=== PATIENT | female | born 1980 | race Caucasian/White ===

== ENCOUNTER 2019-05-03 14:32 | Emergency (ER) | payer MEDICAID ==
[~2019-05-03] VITALS: Ht 142.2 cm; Wt 90.7 kg
[2019-05-03 14:40] VITALS: BP 152/111
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
--- NOTE | 2019-05-03 14:55 | NUR ---
[employer] OFFICERS AT BEDSIDE FOR INTERVIEW
--- NOTE | 2019-05-03 15:14 | NUR ---
PATIENT A/OX4, NO CHANGE IN LOC, NO NAUSEA OR VOMITING AT THIS TIME. DENIES PAIN AT THIS TIME. NEEDS ATTENDED. Patient discharged to home in stable condition. Written and verbal after care instructions given. Patient verbalizes understanding of instruction.
--- NOTE | 2019-05-03 15:16 | NUR ---
VITALS STABLE. BP126/82 HR 88 SPO2 100% R18 T98.1
== END 2019-05-03 15:16 | disposition home or self-care (01) ==
LOC: ER 14:34
DX: S00.03XA Contusion of scalp, initial encounter (principal); S09.8XXA Other specified injuries of head, initial encounter; R42 Dizziness and giddiness; I10 Essential (primary) hypertension; M54.30 Sciatica, unspecified side; F41.9 Anxiety disorder, unspecified; F32.9 Major depressive disorder, single episode, unspecified; Z98.51 Tubal ligation status; Z88.0 Allergy status to penicillin; Z60.2 Problems related to living alone; Y04.8XXA Assault by other bodily force, initial encounter; Y93.89 Activity, other specified; Y92.89 Other specified places as the place of occurrence of the external cause; Y99.8 Other external cause status

== ENCOUNTER 2019-12-14 19:23 | Emergency (ER) | payer MEDICAID ==
[~2019-12-14] VITALS: Ht 144.8 cm; Wt 68.0 kg
--- NOTE | 2019-12-14 19:45 | NUR ---
C/O MIDEPIGASTRIC PAIN S/P EATING SPICY FOOD
[2019-12-14 19:49] LABS: BASOPHILS # (AUTO) 0.1 /CMM (0.0-0.2); BASOPHILS % (AUTO) 0.8 % (0.0-2.0); EOSINOPHILS % (AUTO) 1.8 % (0.0-6.0); HEMATOCRIT 38 % (33-45); HEMOGLOBIN 12.4 g/dL (11.5-14.8); LYMPHOCYTES # (AUTO) 2.1 /CMM (0.8-4.8); LYMPHOCYTES % (AUTO) 33.9 % (20.0-44.0); MEAN CORPUSCULAR HGB CONC 33 g/dl (31.0-36.0); MEAN CORPUSCULAR VOLUME 91 fL (82-100); MONOCYTES # (AUTO) 0.6 /CMM (0.1-1.30); MONOCYTES % (AUTO) 9.5 % (2.0-12.0); NEUTROPHILS # (AUTO) 3.3 /CMM (1.8-8.9); PLATELET COUNT (AUTO) 328 /CMM (150-450); RED BLOOD CELL COUNT(AUTO) 4.18 MIL/uL (4.0-5.2); WHITE BLOOD COUNT (AUTO) 6.2 K/uL (4.3-11.0)
[2019-12-14 19:58] LABS: CALCIUM, SERUM 8.9 mg/dL (8.5-10.1); CARBON DIOXIDE 27 mmol/L (21-32); CHLORIDE 104 mmol/L (98-107); CREATININE 0.8 mg/dL (0.6-1.3); GLUCOSE 82 mg/dL (74-106); POTASSIUM 3.3 mmol/L (3.5-5.1); SODIUM SERUM 140 mmol/L (136-145); UREA NITROGEN, BLOOD 16 mg/dL (7-18)
--- NOTE | 2019-12-14 21:00 | NUR ---
PT MEDCIALLY STABLE FOR D/C. Patient discharged to home in stable condition. Written and verbal after care instructions given. Patient verbalizes understanding of instruction. family was called to sisal picker the pt.
[2019-12-14 21:01] VITALS: BP 146/87
== END 2019-12-14 21:01 | disposition home or self-care (01) ==
LOC: ER 19:25
DX: R07.89 Other chest pain (principal); I10 Essential (primary) hypertension; Z88.0 Allergy status to penicillin; Z98.51 Tubal ligation status; R91.8 Other nonspecific abnormal finding of lung field
CPT/HCPCS: 36415; 71045-TC; 80048-TC; 84484-TC; 85025-TC

== ENCOUNTER 2021-04-16 15:28 | Emergency (ER) | payer MEDICAID ==
[~2021-04-16] VITALS: Ht 165.1 cm; Wt 70.8 kg
--- NOTE | 2021-04-16 15:40 | NUR ---
[id number], c/o cp sharp pain non-radiating, 5/10 ps. Patient a/ox4, breathing even and unlabored, no sob noted. Patient states pain increased to 8/10. 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 No distress noted.
[2021-04-16] MEDS ORDERED: ONDANSETRON HCL/PF 4 MG/2 ML VIAL ONE (15:52)
[2021-04-16] MEDS ORDERED: MORPHINE SULFATE INJ 4 MG/ML DISP.SYRIN ONE (15:53)
[2021-04-16] MEDS ORDERED: IV NS 0.9% 1,000 ML BAG IV ONE (16:00)
[2021-04-16] MEDS ORDERED: ONDANSETRON HCL/PF 4 MG/2 ML VIAL IVP ONE (16:00)
[2021-04-16] MEDS ORDERED: MORPHINE SULFATE INJ 2 MG/ML DISP.SYRIN IV ONE (16:00)
[2021-04-16 16:02] LABS: BASOPHILS # (AUTO) 0.1 K/uL (0.0-0.2); BASOPHILS % (AUTO) 0.8 % (0.0-2.0); EOSINOPHILS % (AUTO) 3.2 % (0.0-6.0); HEMATOCRIT 39 % (33-45); HEMOGLOBIN 12.8 g/dL (11.5-14.8); LYMPHOCYTES # (AUTO) 2.1 K/uL (0.8-4.8); LYMPHOCYTES % (AUTO) 28.3 % (20.0-44.0); MEAN CORPUSCULAR HGB CONC 33 g/dl (31.0-36.0); MEAN CORPUSCULAR VOLUME 89 fL (82-100); MONOCYTES # (AUTO) 0.6 K/uL (0.1-1.30); MONOCYTES % (AUTO) 8.3 % (2.0-12.0); NEUTROPHILS # (AUTO) 4.4 K/uL (1.8-8.9); NEUTROPHILS % (AUTO) 59.4 % (43.0-81.0); PLATELET COUNT (AUTO) 352 K/uL (150-450); RED BLOOD CELL COUNT(AUTO) 4.39 MIL/uL (4.0-5.2); WHITE BLOOD COUNT (AUTO) 7.5 K/uL (4.3-11.0)
[2021-04-16 16:14] LABS: ALANINE AMINOTRANSFERASE 18 U/L (12-78); ALBUMIN 3.5 g/dL (3.4-5.0); ALKALINE PHOSPHATASE 90 U/L (46-116); ASPARTATE AMINOTRANSFERASE 21 U/L (15-37); BILIRUBIN,DIRECT 0.1 mg/dL (0.0-0.2); BILIRUBIN,TOTAL 0.4 mg/dL (0.2-1.0); CARBON DIOXIDE 28 mmol/L (21-32); CHLORIDE 103 mmol/L (98-107); CREATININE 0.8 mg/dL (0.6-1.3); GLUCOSE 79 mg/dL (74-106); POTASSIUM 3.9 mmol/L (3.5-5.1); SODIUM SERUM 138 mmol/L (136-145); TOTAL PROTEIN, SERUM 7.3 g/dL (6.4-8.2); UREA NITROGEN, BLOOD 12 mg/dL (7-18)
--- NOTE | 2021-04-16 16:20 | NUR ---
PATIENT A/OX4, BREATHING EVEN AND UNLABORED, RESTING, NO DISTRESS NOTED.
[2021-04-16] MEDS ORDERED: TRAM50TA2 PO (17:14)
[2021-04-16] MEDS ORDERED: IBUP-1955 PO (17:14)
[2021-04-16 17:49] VITALS: BP 128/84
--- NOTE | 2021-04-16 17:49 | NUR ---
PATIENT A/OX4, BREATHING EVEN AND UNLABORED, NO SOB NOTED, NEEDS ATTENDED. AMBULATORY WITH STEADY GAIT. DENIES PAIN AT THIS TIME. IV removed. Catheter intact and site benign. Pressure and 4x4 applied to site. No bleeding noted.Patient discharged to home in stable condition. Written and verbal after care instructions given. Patient verbalizes understanding of instruction.
== END 2021-04-16 17:54 | disposition home or self-care (01) ==
LOC: ER 15:34
DX: R07.89 Other chest pain (principal); I10 Essential (primary) hypertension; F41.9 Anxiety disorder, unspecified; F32.9 Major depressive disorder, single episode, unspecified; Z98.890 Other specified postprocedural states; Z88.0 Allergy status to penicillin; Z60.2 Problems related to living alone; Z79.899 Other long term (current) drug therapy
CPT/HCPCS: 36415; 71045; 80048; 80076; 84484; 84702; 85025; 93005; 96361; 96374; 96375; 99285; J2270; J2405; J7030